=== PATIENT | male | born 1930 | race Caucasian/White ===

== ENCOUNTER → 2017-03-02 | Outpatient (CLI) | payer MEDICARE, OTHER ==
[2017-03-05 19:53] LABS: ACETYLCHOLINE REC BINDING LESS THAN 0.30 nmol/L (())
[2017-03-05 23:54] LABS: STRIATED MUCLE AB TITER ND (<1:40)
== END ==
LOC: PLAB 12:15
PROVIDERS: ATTEND Family Medicine
DX: R53.1 Weakness (principal)
CPT/HCPCS: 36415; 83519; 86255